=== PATIENT | female | born 1965 | race Two or more races ===

== ENCOUNTER 2021-10-14 20:29 | Emergency (ER) | payer OTHER ==
[~2021-10-14] VITALS: Ht 147.3 cm; Wt 61.2 kg
[2021-10-14] MEDS ORDERED: MORPHINE SULFATE 2 MG/1 ML DISP.SYRIN IM ONE (22:00)
[2021-10-14] MEDS ORDERED: MORPHINE SULFATE 2 MG/1 ML DISP.SYRIN ONE (22:00)
[2021-10-14] MEDS ORDERED: KETOROLAC TROMETHAMINE 30 MG INJ IM ONE (22:00)
--- NOTE | 2021-10-15 01:33 | NUR ---
PATIENT STATES SHE IS UNABLE TO GET A RIDE BACK HOME AT THIS TIME. REQUESTING TO STAY UNTIL 0700 TO HAVE FAMILY PICK HER UP.
[2021-10-15] MEDS ORDERED: HYDR-4209 PO ×2 (01:42→01:44)
--- NOTE | 2021-10-15 02:30 | NUR ---
Patient discharged to home in stable condition WITH LIFT TAKING PATIENT HOME. Written and verbal after care instructions given. Patient verbalizes understanding of instructions. Stressed follow up or return to ER for worsening s/s.
[2021-10-15 02:31] VITALS: BP 110/55
== END 2021-10-15 02:32 | disposition home or self-care (01) ==
LOC: ER 20:35
DX: S13.4XXA Sprain of ligaments of cervical spine, initial encounter (principal); S39.012A Strain of muscle, fascia and tendon of lower back, initial encounter; S09.90XA Unspecified injury of head, initial encounter; Z79.899 Other long term (current) drug therapy; W10.9XXA Fall (on) (from) unspecified stairs and steps, initial encounter; Y93.89 Activity, other specified; Y92.89 Other specified places as the place of occurrence of the external cause; Y99.8 Other external cause status
CPT/HCPCS: 70450; 72125; 72128; 72131; 96372 ×2; 99284; J1885; J2270; A4663